=== PATIENT | female | born 1990 | race Hispanic/Latino ===

== ENCOUNTER 2019-12-13 22:18 | Observation (INO) | payer OTHER ==
[~2019-12-13] VITALS: Ht 160 cm; Wt 77.1 kg
[2019-12-14] MEDS ORDERED: IMITREX100 MG PO (01:11)
[2019-12-14] MEDS ORDERED: MOTRIN IB200 M1 PO (01:13)
--- NOTE | 2019-12-14 02:10 | NUR ---
0040 - ADMITTED TO ROOM 125 VIA STRETCHER FROM ED. NPO FOR AM PROCEDURES. PT TRANSFERRED TO BED W/O PROBLEMS. COOP WITH ADMIT QUESTIONS AND ASSESSMENT. EMESIS 25CC OF UNDIGESTED FOOD PRESENT. GOT UP TO BED W/O PROBLEMS, VOIDED LARGE AMOUNT OF YELLOW URINE. IVF INFUSING. ORIENTED TO ROOM, INFOR R/T JUAN SURGERY GIVEN. MOTHER ROOMING IN
--- NOTE | 2019-12-14 03:32 | NUR ---
Up to br, voided large amount of yellow urine, back to bed, no further emesis noted. c/o h/a, ice pack given alert and oriented, coop. call light at bedside. IVF infusing. On room air, no c/o abd pain at this time
--- NOTE | 2019-12-14 05:07 | NUR ---
CURRENTLY RESTING, IVF INFUSING W/O PROBLEMS. HAD 25CC EMESIS ON ADMIT, NO FURTHER EMESIS SINCE THEN. HAS VOIDED QS. NPO. COOPERATIVE. ON ROOM AIR. FAMILY IN ROOM
--- NOTE | 2019-12-14 05:43 | NUR ---
awake, denies need for pain med. no further emesis. IVF infusing w/o problems, no c/o adverse reaction to abx iv. NPO for am procedure. comfortable, cooperative
--- NOTE | 2019-12-14 07:31 | NUR ---
0704: BEDSIDE REPORT RECEIVED FROM MAJOR REYES. PT RESTING IN HER BED AND SHE DENIES PAIN OR ANY PROBLEMS AT THIS TIME. CALL STOVALL WITHIN REACH.
[2019-12-14] MEDS ORDERED: EXCEDRIN MIGRA1 EAC2 PO (09:25)
--- NOTE | 2019-12-14 09:36 | NUR ---
PT STATES SHE HAS PAIN RATED AT A 4/10 AND WAS MEDICATED ORDERED, SEE EMAR. VERBAL PRE- OP TEACHING GIVEN AND THE PT ASKED QUESTIONS WHICH WERE ANSWERED.
--- NOTE | 2019-12-14 09:56 | NUR ---
PATIENT IS TAKING A HIPA SHOWER HER MOTHER IS ASSISTING.
--- NOTE | 2019-12-14 12:50 | NUR ---
IV placed on non pump tubing as she is about to go to the OR. Pt up to the BR and voided and she removed her contacts.
--- NOTE | 2019-12-14 13:21 | NUR ---
1315: Pt taken to the OR by the surgery team.
--- NOTE | 2019-12-14 16:24 | NUR ---
12/14/19 1624 Carola Garsia 1616- PT ARRIVES TO PACU AROUSABLE TO NOXIOUS STIMULI. DOES NOT FOLLOW COMMANDS AND FALLS INSTANTLY BACK TO SLEEP. RESP EVEN AND UNLABORED. OXYGEN SAT HIGH 90'S TO 100% ON 8L VIA MASK.
--- NOTE | 2019-12-14 17:31 | NUR ---
1725: Pt returned to her room. Pt states she has some pain but is very drowsy and unable to stay awake. VSS. Pt's spouse at bedside.
--- NOTE | 2019-12-14 17:40 | NUR ---
Pt states she needs to void but is very drowsy. She was placed on a bed amaya and voided 600ml. Pt quickly back to sleep.
--- NOTE | 2019-12-14 18:47 | NUR ---
Pt used the bedpan and it spilled over. Bedding changed with the pt in it as she is to drowsy to get out of bed. Pt was having pain with the bedding changed and fell right back to sleep after the bedding changed before her pain could be treated.
--- NOTE | 2019-12-14 19:45 | NUR ---
PT IS SLEEPY, WAKES EASILY TO NAME AND TOUCH, FOLLOWS INSTRUCTION, DENIES NAUSEA, CONT. PULSO OXIMETER IN PLACE 98%. ENC TO DEEP BREATHE, REPOSITIONED AT THIS TIME, SCOPE SITES INTACT WITH STERISTRIPS, JOSE SITE WITH GAUZE DRSG OLD SHADOWING, JOSE WITH SCANT AMOUNT YELLOW SERROUS FLUID, DENIES NEED TO VOID AT THIS TIME, IVF PATENT, CALL LIGHT IN EASY REACH. IN RECLINER DENIES ANY NEEDS.
--- NOTE | 2019-12-14 20:45 | NUR ---
ONE PERSON ASSIST TO STAND AND PIVOT TO BSC, VOIDED 700ML LIGHT YELLOW URINE, DENIES NAUSEA, ENC TO DEEP BREATHE AND INSTRUCTED ON SPLINTING ABD WITH PILLOW, SCOPE SITES CDI, JOSE IS SECURE, BACK TO BED WITH SCD'S ON, ICE PACK TO SITES, AND MOTHER IN ROOM, ALSO DENIES ANY NEEDS. CONT. TO MONITOR WITH OXIMETER, PT IS SLEEPY, TOOK SIPS OF WATER, DENIES WANTING TO EAT. V/S TAKEN.
--- NOTE | 2019-12-14 22:00 | NUR ---
PT IS RESTING QUIETLY, RESP EVEN AND UNLABORED, SITTING IN RECLINER AT BEDSIDE, DENIES ANY NEEDS.
--- NOTE | 2019-12-15 03:06 | NUR ---
PT AWAKE, ABLE TO STAND AND WALK INTO BATHROOM TO VOID 500ML LIGHT YELLOW URINE, SCOPE SITES CDI, JOSE IS SECURE, EMPTIED OF 20ML RED SERROUS FLUID. AGREED TO EAT JELLO, RATES ABD PAIN 5/10 NOW, BETTER AFTER VOIDING. ATTENTIVE AND SITTING AT BEDSIDE. CALL LIGHT IN EASY REACH.
--- NOTE | 2019-12-15 03:27 | NUR ---
PERCOCET GIVEN FOR 5/10 PAIN, PT ATE CUP OF JELLO AND TOLERATED WELL.
--- NOTE | 2019-12-15 05:30 | NUR ---
RESTING WELL, NO FURTHER C/O DISCOMFORT.
--- NOTE | 2019-12-15 06:54 | NUR ---
PT IS ALERT, TOLERATED JELLO, NO FURTHER NAUSEA, MEDICATED X2 WITH PERCOCET FOR 5/10 PAIN, SBA INTO BATHROOM TO VOID, SCOPE SITES CDI WITH STERISTRIPS, JOSE SECURE WITH SHADOWING ON GAUZE DRSG. 20ML YELLOW SERROUS FLUID. STAYING IN ROOM.
--- NOTE | 2019-12-15 07:07 | NUR ---
REPORT RECEIVED FROM ERIC GARG. PT RESTING IN BED, REPORTS 5/10 NAUSEA (PAIN MEDICAITON JUST GIVEN). PT DENIES NAUSEA. DRESSINGS REMAIN UNCHANGED WITH SMALL AMOUNT OF SHADOWING ON JOSE DRESSING GAUZE. SMALL AMOUNT OF SERIOUS FLUID IN JOSE DRAIN. AT BEDSIDE. PT DECLINES BREAKFAST AT THIS TIME. CALL LIGHT WITHIN REACH. BED RAILS UP.
--- NOTE | 2019-12-15 08:06 | NUR ---
Patient is resting. family is in the room with her.
--- NOTE | 2019-12-15 09:13 | NUR ---
MORNING ASSESSMENT AND MEDICATION DUE. PT RESTING IN BED. PT REPORTS 3/10 TOLERABLE PAIN IN ABDOMEN BUT 8/10 HEADACHE PAIN. COOL CLOTH APPLIED TO FORHEAD. ICE PACK REFILLED FOR ABDOMEN. SEE MAR FOR MEDICATION GIVEN. PT HAS ORDERED BREAKFAST AND DENIES NASUEA. BOWEL TONES HEARD. COPX IN PLACE FOR POST OP, O2 SATURATION ABOVE 92% ON ROOM AIR. MEDICATION REVIEWED WITH PT AND GIVEN. WATER REFILLED. PT ENCOURAGED TO AMBULATE AND STATES SHE WILL "AFTER BREAKFAST." NO ADDITIONAL REQUESTS OR COMPLAINTS. SIGNIFICANT OTHER AT BEDSIDE. NO ADDITIONAL REQUESTS OR COMPLAINTS AT THIS TIME. CALL LIGHT WITHIN REACH.
--- NOTE | 2019-12-15 10:07 | NUR ---
THIS RN TO ROOM TO CHECK ON PT. PT FINISHED WITH BREAKFAST, ATE 100%. PT REPORTS 3/10 HEADACHE PAIN THAT "IS GETTING BETTER." AND "A LITTLE" ABDOMINAL PAIN 3/10. PT ENCOURAGED TO AMBULATE, AGREES "IN A LITTLE BIT." NO ADDITIONAL REQUESTS OR COMPLAINTS AT THIS TIME. CALL LIGHT WITHIN REACH. FAMILY AT BEDSIDE.
--- NOTE | 2019-12-15 11:21 | NUR ---
PATIENT AMBULATED TO THE RESTROOM AND BACK TO HER BED
--- NOTE | 2019-12-15 12:11 | NUR ---
NOON ASSESSMENT DUE. PT UP TO AMBULATE IN HALLS X1 LAP WITH THIS RN. PT REPORTS 3/10 PAIN, SEE MAR FOR MEDICATION GIVEN. STERI STRIPS INTACT WITH EDGES WELL APROXIMATED. SMALL AMOUNT OF YELLOW DRAINAGE IN JOSE DRAIN. JOSE EMPTIED OF 15ML. PT UP TO CHAIR. LUNCH ORDERED. NO ADDITIONAL REQUESTS OR COMPLAINTS AT THIS TIME. CALL LIGHT WITHIN REACH.
--- NOTE | 2019-12-15 13:31 | NUR ---
THIS RN TO ROOM TO CHECK ON PT. PT RESTING WITH EYES CLOSED, RESPIRATIONS EVEN AND UNLABORED. PT ALLOWED TO REST. FRIEND AT BEDSIDE. NO ADDITIONAL REQUESTS OR COMPLAINTS. CALL LIGHT WITHIN REACH.
--- NOTE | 2019-12-15 13:41 | NUR ---
MEDICATION DUE. PT CONTINUES RESTING WITH EYES CLOSED IN CHAIR. MEDICAITON GIVEN. O2 AT 93% ON ROOM AIR, RESPIRATIONS EVEN AND UNLABORED. FRIEND AT BEDSIDE. NO ADDITIONAL REQUESTS OR COMPLAINTS AT THIS TIME. CALL LIGHT WITHIN REACH.
--- NOTE | 2019-12-15 14:09 | NUR ---
PT CALL LIGHT ON. PUMP ALARMING, DISTAL OCCLUSION. PUMP RESTARTED. PT UP TO AMBULATE X1 LAP IN WOO. PT DENIES PAIN AND NAUSEA. PT BACK TO ROOM. FRIEND AT BEDSIDE. NO ADDITIONAL REQUESTS OR COMPLAINTS AT THIS TIME. CALL LIGHT WITHIN REACH.
--- NOTE | 2019-12-15 15:50 | NUR ---
AFTERNOON ASSESSMENT DUE. THIS RN TO BEDSIDE. PT RESTING IN BED. PT AWAKE AND ALERT AND ENCORAUGED TO GET UP TO WALK. SBA X3 LAPS IN HALLS. PT DENIES PAIN AND NAUSEA. PT BACK TO BED. ASSESSMENT DONE. STERI STRIPS INTACT WITH WOUND EDGES WELL APROXIMATED. JOSE DRAIN SITE WNL. PT REQUESTS BANDAID OVER JOSE SITE, BANDAID APPLIED. PT DENIES NAUSEA, DINNER ORDER PLACED. PT HAS BEEN MAINTINING O2 SATURATIONS ABOVE 92% ON ROOM AIR. COPX DC'D PER PROTOCOL. NO ADDITIONAL REQUESTS OR COMPLAINTS. CALL LIGHT WITHIN REACH. FRIEND AT BEDSIDE.
--- NOTE | 2019-12-15 17:49 | NUR ---
PUMP ALARMING, INFUSION COMPLETE. NEW FLUID BAG HUNG AT SAME RATE (SEE MAR). PT EATING DINNER. WATER REFILLED. NO ADDITIONAL REQUESTS OR COMPLAINTS. CALL LIGHT WITHIN REACH.
--- NOTE | 2019-12-15 17:58 | NUR ---
PT POST OP DAY 1 AFTER LAPAROSCOPIC CHOLECYSTECTOMY. PRN PAIN MEDICATIONS GIVEN THIS SHIFT, TAPERING TOWARD NON NARCOTIC MEDICATIONS WHEN ABLE. PT ENCORUAGED TO AMBULATE THIS SHIFT. UP TO AMBULATE IN HALLS X3 WITH THIS RN. CPOX DC'D PER PROTOCOL, PT MAINTAINING O2 SATURATIOS ABOVE 92% ON ROOM AIR. PT TOLERATING REGULAR DIET WITH NO NAUSEA THIS SHIFT. PO HYDRATION ENCOURAGED. IV FLUIDS CONTINUE. VOIDING QUANTITY SUFFICIENT. LULY DRAIN BY MD THIS SHIFT. FAMILY AT BEDSIDE. PT USES CALL LIGHT APPROPRIATLY.
--- NOTE | 2019-12-15 18:10 | NUR ---
PATIENT IS FEELING BETTER FAMILY IN ROOM VITALS DONE, NO NEEDS AT THIS TIME
--- NOTE | 2019-12-15 18:49 | NUR ---
PT CALL LIGHT ON. PT REQUESTS PAIN MEDICAITON FOR 3/ PAIN. MOTRIN GIVEN. WATER REFILLED. NO ADDITIONAL REQUESTS OR COMPLAINTS AT THIS TIME. CALL LIGHT WITHIN REACH.
--- NOTE | 2019-12-15 19:42 | NUR ---
HELPED PT TO THE BATHROOM AND BACK TO BED. SCD'S PUT BACK ON. BEDSIDE TABLE AND CALL LIGHT IN REACH. PT NEEDS NOTHING MORE AT THIS TIME.
--- NOTE | 2019-12-15 21:30 | NUR ---
PT HAS MANY VISITORS, IN GOOD SPIRITS, REPORTS MOTRIN HAS HELPED ABD PAIN, DENIES NAUSEA, JUST UP FOR A WALK IN WOO BEFORE GETTING INTO BED, WEARING SCD'S, IVF PATENT. WILL STAY THE NIGHT.
--- NOTE | 2019-12-16 00:36 | NUR ---
UP TO BATHROOM WITH MINIMAL ASSIST, VOIDING QS, WARM BLANKET FOR COMFORT, DENIES FURHTER NEEDS, VERY SUPPORTIVE. CALL LIGHT IN EASY REACH.
--- NOTE | 2019-12-16 04:10 | NUR ---
PT UP TO BATHROOM TO VOID, DENIES ANY NAUSEA, REQUESTED IBUPROFEN, BACK TO BED WITH SCD'S. CALL LIGHT IN EASY REACH.
--- NOTE | 2019-12-16 05:52 | NUR ---
PT HAS SLEPT WELL, NO NAUSEA AND PAIN WELL CONTROLLED WITH IBUPROFEN, SBA WHEN WALKING, VOIDING QS. SCOPE SITES INTACT.
--- NOTE | 2019-12-16 05:59 | NUR ---
VITALS AND I&OS DONE AND CHARTED. BEDSIDE TABLE AND CALL LIGHT IN REACH. PT NEEDS NOTHING AT THIS TIME.
--- NOTE | 2019-12-16 07:08 | NUR ---
REPORT RECEIVED FROM ERIC GARG. PT RESTING IN BED WITH EYES CLOSED. RESPIRATIONS EVEN AND UNALBORED. SIGNIFICANT OTHER RESTING ON COUGH. BED RAILS UP. CALL LIGHT WITHIN REACH. PT ALLOWED TO REST.
--- NOTE | 2019-12-16 09:13 | NUR ---
PATIENT IS UP AND TO THE BATHROOM, BED CHANGED AND PATIENT IS GOING FOR A WALK WITH RN. IN THE WOO WAY
--- NOTE | 2019-12-16 09:32 | NUR ---
MORNING ASSESSMENT AND MEDICATION DUE. SBA UP TO RESTROOM AND FOR AMBULATION IN WOO (2 LAPS AND AMBULATION DOWN MAIN WOO TO END OF CARPETED AREA). PT TOELRATED AMBULATION WELL REPORTING 2/10 PAIN THAT IS "JUST SORE." MORNING CARE DONE, LINENS CHANGED. PT UP TO CHAIR. LUNG SOUND CLEAR WITH O2 OF 96% ON ROOM AIR. MEDICATION GIVEN. PT EATING BREAKFAST. I.S USE DEMONSTREATED REACHING 1250ML. NO ADDITIONAL REQUESTS OR COMPLAINTS. WATER REFILLED. CALL LIGHT WITHIN REACH. FAMILY AT BEDSIDE.
--- NOTE | 2019-12-16 09:40 | NUR ---
PT CHANGES HER MIND STATING SHE WOULD LIKE SOME TYLENOL FOR 2/10 ABDOMINAL PAIN AND 2/10 HEADACHE. SEE MAR FOR MEDICATION GIVEN.
--- NOTE | 2019-12-16 10:00 | NUR ---
THIS RN TO ROOM TO CHECK ON PT. PT REPORTS PAIN "ONLY WHEN I COUGH." OTHERWISE 0/10. PT REQUESTS VOGEL CATHETER REMOVAL, ATTEMPTED TO CALL MD, NO ANSWER AT THIS TIME. WILL TRY AGAIN LATER. PT REPORTS "FEELING LIKE I NEED TO HAVE A BOWEL MOVMENT." PT ENCOUARGED TO AMBULATE. 2 LAP DONE AROUND WOO WITH 1PA. NO ADDITIONAL REQUESTS OR COMPLAINTS AT THIS TIME. CALL LIGHT WITHIN REACH.
--- NOTE | 2019-12-16 10:50 | NUR ---
THIS RN TO ROOM TO CHECK ON PT. PT UP TO CHAIR, FINISHED WITH BREAKFAST. PT REPORTS HEADACHE IS GONE AND ABDOMEN IS "JUST SORE." PT RATES SORNESS AT 1/10. PT UP TO AMBULATE X2 LAPS IN WOO. PT SALINE LOCKED FOR EASE OF AMBULATION. PT BACK TO ROOM, UP TO CHAIR, ENCOURAGED TO AMBULATE ON HER OWN MUCH SHE FEELS ABLE. PT VERBALIZES UNDERSTANDING. CALL LIGHT WITHIN REACH. NO ADDITIONAL REQUESTS OR COMPLAINTS AT THIS TIME.
--- NOTE | 2019-12-16 13:02 | NUR ---
THIS RN TO ROOM WITH MD FOR ROUNDS. PT REPORTS 1/10 PAIN AND DENIES NEED FOR PAIN MEDICATION AT THIS TIME. DISCHARGE ORDERS PLACED. PT EATING LUNCH AND ANTITICIPATING DISCHARGE. NO REQUESTS OR COMPLAINTS AT THIS TIME. CALL LIGHT WITHIN REACH.
[2019-12-16] MEDS ORDERED: TYLENOL EXTRA500 MG PO (13:18)
[2019-12-16] MEDS ORDERED: IBUPROFEN600 MG PO (13:18)
--- NOTE | 2019-12-16 13:54 | NUR ---
PT READY FOR DISCHRAGE. VITALS TAKEN. MEDICATIONS GIVEN. IV DC'D PER PROTOCOL. GAUZE AND COBAN APPLIED. DISCHRAGE INSTRUCTIONS REVEIWED WITH PT AND SIGNIFICANT OTHER. PT AND SIGNIFICIANT OTHER VERBALIZE UNDERSTANDING OF INSTRUCTIONS, MEDICAITON AND FOLLOW UP APPOINTMENT. PHARMACIST TO BEDSIDE TO REVIEW MEDICATONS IN MORE DETAIL. PT WILL CALL WHEN READY TO BE WHEELED OUT TO CAR. CALL LIGHT WITHIN REACH.
[2019-12-16] MEDS ORDERED: ONDANSETRON ODT4 MG SL (13:56)
--- NOTE | 2019-12-17 09:22 | OR ---
[facility] [address], [place] [address] Signed DATE OF OPERATION: 12/14/2019 SURGEON: Sterling Long MD PREOPERATIVE DIAGNOSES: 1. Acute calculous cholecystitis. 2. Obesity. POSTOPERATIVE DIAGNOSES: 1. Acute calculus cholecystitis with distal common duct obstruction. 2. Difficult airway. PROCEDURES: 1. Laparoscopic cholecystectomy with cholangiogram and laparoscopic transcystic duct common bile duct exploration including passage of wire, balloon, ampullary dilation, flushing of duct and completion cholangiogram. 2. Surgeon-directed fluoroscopy. ANESTHESIA: General endotracheal; Jaison Ashia, CAR CARDER, and local 10 mL of 0.25% Marcaine with epinephrine. INDICATION: This 29-year-old obese woman is accompanied by her and lately by her mother as well. She presented to the emergency room nearly late at night with severe right subcostal pain. She has been having similar such bouts over the past two weeks. The liver enzymes were slightly elevated, though the alkaline phosphatase and bilirubin are normal. She has been fluid resuscitated, given intravenous antibiotics and now to undergo a laparoscopic cholecystectomy with cholangiogram, possible open procedure depending on findings. The risks of bleeding, infection, bile duct injury, need for open procedure and other unforeseen complications were reviewed in detail. She understands and wished to proceed. FINDINGS: The gallbladder was indeed acutely inflamed. The liver was reasonably normal. Initial cholangiogram showed a dilated common bile duct and no passage of contrast into the duodenum. It was unclear if there was a filling defect accounting for the obstruction. She was given glucagon, which did not help for passage of contrast. On that basis, a transcystic duct common duct exploration was undertaken with passage of a wire and balloon dilation of the ampulla, flushing of the duct and completion cholangiogram, Electronically Signed By: STERLING LONG MD 12/17/19 0922 PATIENT NAME: ISSA JORDAN OPERATIVE REPORT DATE OF : [birth year] REPORT #: [id number] PHYSICIAN: STERLING LONG MD PCP: NO PRIMARY CARE PHYSICIAN REPORT IS CONFIDENTIAL AND NOT TO BE RELEASED WITHOUT AUTHORIZATION [facility] [address], [place] [address] Signed which showed clearance of the duct. The excised gallbladder had a single oblong gallstone as well as smaller round gallstones medium green in color. The mucosa showed no sign of neoplasm. DESCRIPTION OF PROCEDURE: The patient was brought to the operating room, given a general endotracheal anesthetic. Preoperative antibiotic Ancef was given. Sequential compression device stockings used and heparin subcutaneously administered. The abdomen was prepared with a chlorhexidine solution after placement of a Sandoval catheter, anticipating a potentially long operation. After sterile draping, an infraumbilical incision was made and using an open Manjula cannula technique, pneumoperitoneum was achieved to a level of 14 mmHg of carbon dioxide gas. Intraabdominal inspection showed no sign of ascites or carcinomatosis. The gallbladder was inflamed. The liver had mild fatty infiltration. Three additional trocars were placed in usual configuration in the subxiphoid, right midclavicular, and right anterior axillary line. The gallbladder was elevated cephalad and retracted laterally and using blunt electrocautery dissection, the triangle of Calot was dissected free. Ultimately, the cystic duct could be well identified. A clip was applied across gallbladder cystic duct junction and transverse choledochotomy made in the cystic duct. Retrograde milking of the cystic duct delivered no stones or debris, only bile. Using the Sanchez-type cholangiocatheter, intraoperative cholangiography was undertaken with surgeon-directed fluoroscopy. Free flow of contrast was noted in the biliary tree with dilation of the common hepatic and common bile ducts, but no passage of contrast in the duodenum. Additional contrast still showed no sign of flow. It was unclear if there was an obstruction, but clearly there was no passage through the ampulla. A pancreatogram was noted as well. The ductal anatomy for the pancreatogram was slightly unusual with insertion of the duct more proximal than the ampulla itself. On the basis of no flow into the duodenum and uncertainty regarding retained stone or some other similar problem, 1 mg of glucagon was administered. After appropriate length of time of waiting, repeat cholangiogram was undertaken still showing no sign of contrast passage to the ampulla. On that basis through the Sanchez-type device, a flexible wire was passed into the cystic duct, which was difficult to traverse the duct due to the valves within the duct itself. Ultimately, the wire was passed and fluoroscopic control was undertaken showing that the flexible tip had passed down to the distal common bile duct, but tracked more proximally once again. Under fluoroscopic control, the wire was ultimately manipulated into the duodenum. An ERCP balloon catheter was then passed over the wire under direct visualization with the balloon markers guiding and the balloon segment passed over the ampulla. The ampulla was then dilated under fluoroscopic control of contrast within the balloon Electronically Signed By: STERLING LONG MD 12/17/19 0922 PATIENT NAME: ISSA JORDAN OPERATIVE REPORT DATE OF : [birth year] REPORT #: [id number] PHYSICIAN: STERLING LONG MD PCP: NO PRIMARY CARE PHYSICIAN REPORT IS CONFIDENTIAL AND NOT TO BE RELEASED WITHOUT AUTHORIZATION [facility] [address], [place] [address] Signed itself. The wire was allowed to remain in place and the catheter was withdrawn more proximally. Attempts at flushing were unsuccessful and therefore, the catheter was removed entirely and the wire was removed as well. Once again, the Sanchez-type cholangiocatheter was used to provide intraoperative cholangiogram. At this point, complete flow through the common bile duct was noted. No sign of filling defect or other problems. The cystic duct was triply clipped and divided. The gallbladder was dissected free in a retrograde fashion. A small amount of bile leak was noted during the course of dissection from the gallbladder itself. This was later suctioned free. The gallbladder was extracted through the infraumbilical port site, opened on the back table and found to have a single oblong gallstone about 1.2 cm in size, medium green in color, and a few gallstone debris chips additionally. Likely, the obstructing process in the ampulla was similar such debris. Irrigation was undertaken in the subhepatic space. Excess irrigation was suctioned free. Given the manipulation of the common bile duct, a 7 mm flat Jeyson drain was placed through a right-sided trocar site, later secured to the skin. The trocars were removed under direct visualization showing no sign of bleeding. The infraumbilical fascial incision was reapproximated with interrupted 0 Vicryl suture in a running 0 PDS suture. Irrigation was undertaken. The skin was closed with interrupted 3-0 Vicryl after application of 10 mL of 0.25% Marcaine with epinephrine. Steri-Strips were applied. Egress from the drain showed dilute bilious fluid. Though there was no known bile duct injury or anything of that sort, the catheter was copiously irrigated with saline solution until only a pale yellow look was noted and quite unlikely there remained a bile leak. Extra care was taken with irrigation of the biliary drain on the basis of her difficulty with airway. She has an overbite, a small chin, and angulated anterior vocal cords, which made intubation challenging, but accomplished with the assistance of a GlideScope, a bougie device, and so on. Extubation was cautious, mindful of her difficult intubation, was accomplished without problem. She was given Decadron by the erp engineer. The patient was taken to the recovery room in good condition having suffered no complications. Sponge, needle, and instrument counts reported as correct x3. Electronically Signed By: STERLING LONG MD 12/17/19 0922 PATIENT NAME: ISSA JORDAN OPERATIVE REPORT DATE OF : [birth year] REPORT #: [id number] PHYSICIAN: STERLING LONG MD PCP: NO PRIMARY CARE PHYSICIAN REPORT IS CONFIDENTIAL AND NOT TO BE RELEASED WITHOUT AUTHORIZATION [address] [address] Signed MD KELVIN Sanchez/EDGARDO /[id number] cc: Jabier Higuera MD Copies: JABIER HIGUERA MD ~ Electronically Signed By: STERLING LONG MD 12/17/19921 PATIENT NAME: ISSA JORDAN Hyun OPERATIVE REPORT DATE OF : [birth year] REPORT #: [id number] PHYSICIAN: STERLING LONG MD PCP: NO PRIMARY CARE PHYSICIAN REPORT IS CONFIDENTIAL AND NOT TO BE RELEASED WITHOUT AUTHORIZATION
--- NOTE | 2019-12-17 09:22 | DS ---
[facility] [address] [place], [place] [address] Signed ADMISSION DATE: 12/13/2019 DISCHARGE DATE: 12/16/2019 REASON FOR ADMISSION: This 29-year-old woman is accompanied by her and mother. They live in [place]. 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 She has had two weeks of right subcostal pain episodically, which radiates to the subscapular area. It awakens her at night typically. She presented to the emergency room, was evaluated by Dr. Jabier Higuera approximately 11 at night. Ultimately undergoing a gallbladder ultrasound, which showed gallstones. She was noted to have a slightly elevated liver enzymes of AST and ALT at 208 and 218 respectively and alkaline phosphatase normal at 60. The bilirubin normal at 0.7. White count was 10.2. She was admitted for further evaluation and care. PERTINENT PHYSICAL EXAMINATION: GENERAL: On admission include a pleasant woman, who looked to be nontoxic. VITAL SIGNS: Temperature 97.8, pulse 67, respirations 14, blood pressure 146/87, pulse oximetry at 97 on room air. HEENT: Mucous membranes are quite dry. CHEST: Clear. HEART: Regular without murmur. ABDOMEN: Obese but soft. There is tenderness in right subcostal area. No mass and no ascites. HOSPITAL COURSE: She was admitted, given intravenous fluid resuscitation and parenteral antibiotics [facility], and on December 14, 2019, underwent laparoscopic cholecystectomy with cholangiogram. She was found to have no emptying of the common bile duct and on that basis, underwent laparoscopic transcystic duct common bile duct exploration including passage of wire, balloon, ampullary dilation and flushing of the duct and completion cholangiogram, which was normal. Her postoperative course was unremarkable. A drain was placed in subhepatic space, which showed no sign of bile leak or other problems and was removed postop day 1. She did not feel well enough to go home that day and had progressive improvement and by day of discharge, she is ambulating well, tolerating a regular diet, has minimal incisional pain with non-opiate analgesics and wounds are healing well. FOLLOWUP PLAN: To see me in 4 weeks or so. She will call on Tuesday to schedule appointment. She was advised to lift no more than 20 pounds for the next 2 weeks. She is permitted to shower. Electronically Signed By: STERLING LONG MD 12/17/19 0922 PATIENT NAME: ISSA JORDAN DISCHARGE SUMMARY DATE OF : [birth year] REPORT #: [id number] PHYSICIAN: STERLING LONG MD PCP: NO PRIMARY CARE PHYSICIAN REPORT IS CONFIDENTIAL AND NOT TO BE RELEASED WITHOUT AUTHORIZATION [facility] [address] [place], [place] [address] Signed DISCHARGE MEDICATIONS: 1. Ibuprofen 600 mg p.o. q.6 hours as needed for pain, #30. 2. Tylenol Extra Strength 500 mg two tablets p.o. q.6 hours as needed for pain, #30, no refill. She will continue with her usual medications include Imitrex 100 mg tablet as needed for migraine and occasions of aspirin, Tylenol and caffeine for migraine headache as well. DISCHARGE DIAGNOSES: 1. Acute calculus cholecystitis with residual debris of distal common duct, status post laparoscopic cholecystectomy with laparoscopic transcystic duct exploration. 2. History of migraine headache. Sterling Long MD JM/MODL /[id number] cc: Jabier Higuera MD Copies: JABIER HIGUERA MD ~ Electronically Signed By: STERLING LONG MD 12/17/19921 PATIENT NAME: ISSA JORDAN DISCHARGE SUMMARY DATE OF : [birth year] REPORT #: [id number] PHYSICIAN: STERLING LONG MD PCP: NO PRIMARY CARE PHYSICIAN REPORT IS CONFIDENTIAL AND NOT TO BE RELEASED WITHOUT AUTHORIZATION
--- NOTE | 2019-12-17 09:22 | HP ---
[facility] [address] [place], [place] [address] Signed ADMISSION DATE: 12/13/2019 REASON FOR ADMISSION: Acute calculous cholecystitis. HISTORY OF PRESENT ILLNESS: This very pleasant 29-year-old woman is accompanied by her and her mother. They live in [place]. She has had two weeks of right subcostal pain episodically and radiating to the subscapular area. This awakens her at night typically. She presented to the emergency room and was evaluated by Dr. Higuera at approximately 11 o'clock at night, ultimately undergoing a gallbladder ultrasound, which showed gallstones. She was noted to have slightly elevated liver enzymes of AST and ALT at 208 and 218 respectively, alkaline phosphatase normal at 60, and bilirubin normal at 0.7. White count was normal at 10.2. She is admitted for further evaluation and care. PAST MEDICAL HISTORY: Significant for childbirth x2. She has not had any surgical interventions of the abdomen. She does not smoke or use alcohol. Her last menstrual period was 12/07/2019. SOCIAL HISTORY: She is and she is accompanied by her . She has two children. PHYSICAL EXAMINATION: GENERAL: Pleasant woman who looks to be nontoxic generally. VITAL SIGNS: Temperature is 97.8, pulse 67, respirations 14, blood pressure 146/87, pulse oximetry is 97%. HEENT: Mucous membranes are noted to be quite dry. NECK: Shows no thyromegaly or cervical adenopathy. Trachea is midline. CHEST: Clear. HEART: Regular without murmur. ABDOMEN: Obese, but soft. There is tenderness in the right subcostal area. There is no mass. She has no ascites. EXTREMITIES: Show no clubbing, cyanosis, or edema. DIAGNOSTIC DATA: Lab studies show a white count 10.2, hematocrit 41.3, platelets 244,000. Chem profile is essentially normal, other than the liver enzymes as previously described. Lipase is 24. Beta-hCG is negative. Urinalysis is negative. Review of her abdominal ultrasound was undertaken. The gallbladder looks to be somewhat thickened and there is certainly at least one stone and some sludge noted in the gallbladder. Electronically Signed By: STERLING LONG MD 12/17/19 0922 PATIENT NAME: ISSA JORDAN HISTORY AND PHYSICAL DATE OF : [birth year] REPORT #: [id number] PHYSICIAN: STERLING LONG MD PCP: NO PRIMARY CARE PHYSICIAN REPORT IS CONFIDENTIAL AND NOT TO BE RELEASED WITHOUT AUTHORIZATION [facility] [address] [place], [place] [address] Signed ASSESSMENT: The patient has acute calculous cholecystitis clinically and with ultrasonographic findings. She has been admitted for fluid resuscitation, IV antibiotics and so forth. Her mucous membranes are dry. She will need additional fluid. Discussed with the patient and her family the risks of bleeding, infection, bile duct injury, need for open procedure for a planned laparoscopic cholecystectomy to manage this problem. They understand these risks and agreed to proceed. We will plan to do this today. MD KELVIN Sanchez/EDGARDO /[id number] cc: Jabier Higuera MD Copies: JABIER HIGUERA MD ~ Electronically Signed By: STERLING LONG MD 12/17/19921 PATIENT NAME: ISSA JORDAN HISTORY AND PHYSICAL DATE OF : [birth year] REPORT #: [id number] PHYSICIAN: STERLING LONG MD PCP: NO PRIMARY CARE PHYSICIAN REPORT IS CONFIDENTIAL AND NOT TO BE RELEASED WITHOUT AUTHORIZATION
== END 2019-12-16 14:15 | disposition home or self-care (01) ==
LOC: ED 22:18 → MS 22:19
PROVIDERS: ADMIT Surgery
PROC: BF13YZZ Fluoroscopy of Gallbladder and Bile Ducts using Other Contrast (ICD-10-PCS; 2019-12-14)
PROC: 0FJB4ZZ Inspection of Hepatobiliary Duct, Percutaneous Endoscopic Approach (ICD-10-PCS; 2019-12-14)
PROC: 0F7C4ZZ Dilation of Ampulla of Vater, Percutaneous Endoscopic Approach (ICD-10-PCS; 2019-12-14)
PROC: 0FT44ZZ Resection of Gallbladder, Percutaneous Endoscopic Approach (ICD-10-PCS; principal; 2019-12-14 13:45)
DX: K80.13 Calculus of gallbladder with acute and chronic cholecystitis with obstruction (principal); E66.9 Obesity, unspecified
CPT/HCPCS: 00790; 74300; 76705; 80053; 81001; 83690; 84703; 85025; 96361; 96375; 96376; 99285-25; A9270; C1726; C1769; C1894; G0378; J0690; J1100; J1170; J1610; J1885; J2001; J2250; J2405; J2550; J2704; J3010; J7030; J7121; Q9967

== ENCOUNTER 2021-08-07 09:56 | Day surgery (SDC) | payer OTHER ==
[~2021-08-07] VITALS: Ht 165.1 cm; Wt 77.3 kg
[~2021-08-07 09:56] MED LIST: EXCEDRIN MIGRA1 EAC2 PO; IBUPROFEN600 MG PO; IMITREX100 MG PO; MOTRIN IB200 M1 PO; ONDANSETRON ODT4 MG SL; TYLENOL EXTRA500 MG PO
--- NOTE | 2021-08-07 12:02 | NUR ---
08/07/21 1202 Carola Garsia 1156- PT ARRIVES TO PACU NONAROUSABLE TO STIMULI WITH AN OPA IN PLACE. RESP EVEN AND UNLABORED. OXYGEN SAT HIGH 90'S TO 100% ON 6L VIA MASK. PERIPAD PLACED BETWEEN PT'S LEGS. SMALL AMOUNT OF BLEEDING NOTED.
[2021-08-07] MEDS ORDERED: HYDROCODON-ACE1 EA10 PO (12:58)
--- NOTE | 2021-08-07 13:15 | NUR ---
ATE JELLO AND CRACKERS PAIN 4/10 NORCO GIVEN.
--- NOTE | 2021-08-07 13:34 | NUR ---
1330 PT UP TO THE BATHROOM WITH MINIMAL ASSIST SHE WAS ABLE TO VOID 700ML OF BLOOD TINGED URINE. PT REPORTS READINESS TO GO HOME, PT DRESSED WITH HELP FROM
--- NOTE | 2021-08-07 22:52 | OR ---
[facility] [address] [facility] [place], [place] [address] Signed DATE OF OPERATION: 08/07/2021 SURGEON: Haleigh Plascencia MD PREOPERATIVE DIAGNOSIS: Blighted ovum. POSTOPERATIVE DIAGNOSIS: Blighted ovum. PROCEDURE: Suction D and C. ANESTHESIA: MAC. ESTIMATED BLOOD LOSS: 125 mL. DRAINS: None. INDICATIONS AND FINDINGS: The patient is a 31-year-old female, 3, para 2, who is now almost 13 weeks gestation with a blighted ovum. Options were discussed and they desired to proceed with suction D and C. at the time of surgery, exam under anesthesia revealed a cervix, which is closed and uterus that was approximately 12-week size, soft. There was a large amount of tissue within the uterus. DESCRIPTION OF PROCEDURE: The patient was prepped and draped in the dorsal lithotomy position. Open-sided speculum was placed and the anterior lip of the cervix was visualized and grasped with a single-tooth tenaculum. The endocervical canal was then dilated with some difficulty to a #10 dilator. Following this, a #10 curved suction curette was introduced and suction curettage was done with removal of a large amount of tissue. This was followed by sharp curettage with removal of a small amount of tissue. The suction curettage was then repeated. These were alternated until the cavity felt clean and contracted. At this point, however, there still appeared to be some bleeding, which was primarily from the cervix. Apwhjq-db-[id number] sutures of 0 chromic were placed at 3 and 9 o'clock with some improvement in the bleeding. The tenaculum was removed and because of the ongoing Electronically Signed By: HALEIGH PLASCENCIA MD 08/07/21 2252 PATIENT NAME: ISSA JORDAN OPERATIVE REPORT DATE OF : [birth year] REPORT #: [id number] PHYSICIAN: HALEIGH PLASCENCIA MD PCP: NO PRIMARY CARE PHYSICIAN REPORT IS CONFIDENTIAL AND NOT TO BE RELEASED WITHOUT AUTHORIZATION [facility] [address] [place], [place] [address] Signed bleeding besides the Pitocin and Methergine IM, a dubwhv-hu-bwkwd sutures were placed at 12 and 6 o'clock as well. Pressure was then also applied to the cervix. Following this, there still appeared to be some ongoing bleeding from the canal of the cervix. The stone forceps were introduced and open to apply pressure directly to the cervical wall and this allowed for hemostasis to occur. Following this, there was minimal cervical drainage. The speculum was removed. All sponge and needle counts were correct. The patient tolerated the procedure well and was taken to the recovery room in good condition. Haleigh Plascencia MD PJW/MODL /[id number] Copies: ~ Electronically Signed By: HALEIGH PLASCENCIA MD 08/07/21 2252 PATIENT NAME: JULIANISSARO SALVADOR OPERATIVE REPORT DATE OF : [birth year] REPORT #: [id number] PHYSICIAN: HALEIGH PLASCENCIA MD PCP: NO PRIMARY CARE PHYSICIAN REPORT IS CONFIDENTIAL AND NOT TO BE RELEASED WITHOUT AUTHORIZATION
== END 2021-08-07 13:45 | disposition home or self-care (01) ==
LOC: DS 09:56
PROVIDERS: ATTEND Obstetrics & Gynecology
PROC: 10D07Z8 Extraction of Products of Conception, Other, Via Natural or Artificial Opening (ICD-10-PCS; principal; 2021-08-07 12:00)
DX: O02.0 Blighted ovum and nonhydatidiform mole (principal); Z86.32 Personal history of gestational diabetes; Z86.16 Personal history of COVID-19
CPT/HCPCS: 00952; 85027; J0690; J1100; J1885; J2001; J2210; J2250; J2405; J2590; J2704; J2765; J3010; J7121

== ENCOUNTER 2021-12-22 10:20 | Emergency (ER) | payer OTHER ==
[~2021-12-22] VITALS: Ht 165.1 cm; Wt 77.1 kg
[~2021-12-22 10:20] MED LIST changes: +HYDROCODON-ACE1 EA10 PO
== END 2021-12-22 13:32 | disposition home or self-care (01) ==
LOC: ED 10:20
DX: O20.8 Other hemorrhage in early pregnancy (principal); Z3A.15 15 weeks gestation of pregnancy
CPT/HCPCS: 36415; 76815; 80053; 81001; 85025; 86900; 99284-25; J7030

== ENCOUNTER 2022-05-24 03:59 | Inpatient (IN) | payer OTHER ==
[~2022-05-24] VITALS: Ht 165.1 cm; Wt 89.8 kg
--- NOTE | 2022-05-24 12:14 | PR ---
[facility] [address] [facility] [place], [place] [address] Signed Progress Notes IP Datetime Report Generated by CPN: 05/24/2022 12:13 PROGRESS NOTES: [id number] Impression: Normal Progression of Labor; Reassuring Heart Rate Procedures: Artificial ROM; Sterile Vag Exam Plan: Continue Present Management VITAL SIGNS: [id number] Vital Signs: Reviewed; Within Normal Limits EXAM: [id number] Dilatation: 4.0 Effacement: 50 Station: -2 Contractions: occasional MEMBRANES: [id number] Comments: Starting to feel contractions. Sugars are good and status reassuring. Will continue. FETUS A: [id number] FHR Baseline: 120 Variability: Moderate 6-25bpm Accelerations: 15X15 Decelerations: None FHR Category: Category I Presentation: Vertex Comments on Fetus A: no evidence of metabolic acidosis FETUS B: [id number] Signing Physician: Diana Plascencia MD Copies: ~ *Electronically Signed* 05/24/22 1213 DIANA PLASCENCIA MD PATIENT NAME: ISSA JORDAN PROGRESS NOTE DATE OF : [birth year] PHYSICIAN: DIANA PLASCENCIA MD RPT #: [id number] REPORT IS CONFIDENTIAL AND NOT TO BE RELEASED WITHOUT AUTHORIZATION
--- NOTE | 2022-05-24 17:21 | PR ---
[facility] [address] [facility] [place], [place] [address] Signed Progress Notes IP Datetime Report Generated by CPDell: 05/24/2022 17:21 PROGRESS NOTES: [id number] Impression: Normal Progression of Labor; Reassuring Heart Rate Procedures: Sterile Vag Exam Plan: Augmentation Other Plans: position changes VITAL SIGNS: [id number] Vital Signs: Reviewed; Within Normal Limits EXAM: [id number] Dilatation: 6.0 Effacement: 75 Station: -2 Contractions: occasional MEMBRANES: [id number] Comments: Progressing though quite slowly. Fetus is asynclitis as well. Will work on position changes and increase pitocin as needed. FETUS A: [id number] FHR Baseline: 120 Variability: Moderate 6-25bpm Accelerations: 15X15 Decelerations: None FHR Category: Category I Presentation: Vertex Comments on Fetus A: no evidence of metabolic acidosis FETUS B: [id number] Signing Physician: Diana Plascencia MD Copies: ~ *Electronically Signed* 05/24/22 1721 DIANA PLASCENCIA MD PATIENT NAME: ISSA JORDAN PROGRESS NOTE DATE OF : [birth year] PHYSICIAN: DIANA PLASCENCIA MD RPT #: [id number] REPORT IS CONFIDENTIAL AND NOT TO BE RELEASED WITHOUT AUTHORIZATION
--- NOTE | 2022-05-25 07:30 | PR ---
[facility] [address] [facility] [place], [place] [address] Signed PP Progress Notes Datetime Report Generated by CPN: 05/25/2022 07:30 SUBJECTIVE: [id number] Pain: Within Normal Limits Pain Comments: tired, headache Nausea/Vomiting: Denies Vital Signs: [id number] Vital Signs: Reviewed Notable Details: HTN--not severe EXAM: Ongoing Cardiovascular: Normal Abdomen/Uterus: Abnormal Lochia: Normal Vulva/Perineum: Not Done Breasts: Not Done CVA Tenderness: Not Done Extremities: Normal Incision: Not Applicable Progress: Abnormal Exam Comments: Fundus firm, NT @ U-2 No knee jerk present H/H 11.9/35, WBC 7.2, plat 120k Mag level 6.9 BUN/CR 8/0.79 AST 52 IMPRESSION/PLAN/PROCEDURES: [id number] Impression: Difficulties; Induced Hypertension Other Plans: stop mag xs 1 hr, restart at 1 gm/hr Progress Notes: Doing well overall. Her BPs have come down. Mag level is on high side w/ absent DTRs. Will stop mag for an hr and restart at 1 gm/hr (down from 2 gm/hr). If BPs continue to be reasonable, will stop mag at 1200 and continue observation. Signing Physician: Diana Plascencia MD Copies: ~ *Electronically Signed* 05/25/22 5031 DIANA PLASCENCIA MD PATIENT NAME: ISSA JORDAN PROGRESS NOTE DATE OF : [birth year] PHYSICIAN: DIANA PLASCENCIA MD RPT #: [id number] REPORT IS CONFIDENTIAL AND NOT TO BE RELEASED WITHOUT AUTHORIZATION
--- NOTE | 2022-05-27 08:55 | PR ---
[facility] [address] [facility] [place], [place] [address] Signed PP Progress Notes Datetime Report Generated by CPN: 05/27/2022 08:55 SUBJECTIVE: [id number] Pain: Within Normal Limits Pain Comments: tired now Nausea/Vomiting: Denies Bowel Movement: Yes Vital Signs: [id number] Vital Signs: Reviewed Notable Details: HTN mild on meds EXAM: Ongoing Cardiovascular: Not Done Respiratory: Not Done Abdomen/Uterus: Abnormal Lochia: Normal Vulva/Perineum: Not Done Breasts: Not Done CVA Tenderness: Not Done Extremities: Normal Incision: Not Applicable Progress: Normal Exam Comments: Fundus firm, NT @ U-2 IMPRESSION/PLAN/PROCEDURES: [id number] Impression: Normal Progression; Induced Hypertension Plan: Discharge Other Plans: continue observation of BPs Procedures: None Progress Notes: Doing well. Her BP is under better control with her medication. Signing Physician: Diana Plascencia MD Copies: ~ *Electronically Signed* 05/27/22 0855 DIANA PLASCENCIA MD PATIENT NAME: JORDAN,ISSA SALVADOR PROGRESS NOTE DATE OF : [birth year] PHYSICIAN: DIANA PLASCENCIA MD RPT #: [id number] REPORT IS CONFIDENTIAL AND NOT TO BE RELEASED WITHOUT AUTHORIZATION
== END 2022-05-27 11:35 | disposition home or self-care (01) | DRG 805 ==
LOC: FBCO 03:59 → FBC 05:27
PROVIDERS: ADMIT Obstetrics & Gynecology; ATTEND Obstetrics & Gynecology
PROC: 10E0XZZ Delivery of Products of Conception, External Approach (ICD-10-PCS; principal; 2022-05-24)
PROC: 10907ZC Drainage of Amniotic Fluid, Therapeutic from Products of Conception, Via Natural or Artificial Opening (ICD-10-PCS; 2022-05-24)
PROC: 3E0R3BZ Introduction of Anesthetic Agent into Spinal Canal, Percutaneous Approach (ICD-10-PCS; 2022-05-24)
PROC: 00HU33Z Insertion of Infusion Device into Spinal Canal, Percutaneous Approach (ICD-10-PCS; 2022-05-24)
PROC: 8E0ZXY6 Isolation (ICD-10-PCS; 2022-05-24)
DX: O14.14 Severe pre-eclampsia complicating childbirth (principal); U07.1 COVID-19; Z37.0 Single live birth; O98.52 Other viral diseases complicating childbirth; O24.424 Gestational diabetes mellitus in childbirth, insulin controlled; O36.63X0 Maternal care for excessive fetal growth, third trimester, not applicable or unspecified; O76 Abnormality in fetal heart rate and rhythm complicating labor and delivery; Z3A.36 36 weeks gestation of pregnancy; Z98.890 Other specified postprocedural states; Z79.4 Long term (current) use of insulin; Z79.899 Other long term (current) drug therapy
CPT/HCPCS: 01960; 36415; 80053; 82565; 82570; 83036; 83615; 83735; 84156; 84550; 85027; 85060; 86850; 86900; 86901; 87502; A9270; C9803; J1644; J2001; J2405; J2540; J2550; J2590; J2795; J3475; J7121; U0003